=== PATIENT | female | born 1975 | race Caucasian/White ===

== ENCOUNTER 2019-05-22 14:38 | Emergency (ER) | payer OTHER, BC ==
--- NOTE | 2019-05-22 16:01 | RADIOLOGY REPORT (SQ) ---
EXAM DESCRIPTION: FOREARM RIGHT COMPLETED DATE/TIME: 05/22/2019 3:42 pm REASON FOR STUDY: Forearm Injury COMPARISON: None. NUMBER OF VIEWS: Two views. TECHNIQUE: Two radiographic images acquired of the right forearm, including elbow and wrist in at le ast one projection. LIMITATIONS: None. FINDINGS: MINERALIZATION: Normal. BONES: No acute fracture. No worrisome bone lesions. SOFT TISSUES: Mild soft tissue swelling. No foreign body. OTHER: No other significant finding. IMPRESSION: MILD SOFT TISSUE SWELLING. NO FRACTURE OR FOREIGN BODY. TECHNICAL DOCUMENTATION: JOB ID: [id number] [employer]- All Rights Reserved Reading location - IP/workstation name: [email or web address]
[2019-05-22] MEDS ORDERED: DIPH/PERTUSS(ACELL)/TETANUS VAC/PF 0.5 ML SYR (>=10YO) IM ONE (17:54)
--- NOTE | 2019-05-22 17:56 | ER Document Report ---
ED Extremity Problem, Upper - General Chief Complaint: Arm Injury Stated Complaint: RIGHT ARM PAIN Time Seen by Provider: 05/22/19 17:17 Primary Care Provider: KARTHIK RAMOS MD [Primary Care Provider] - Follow up as needed Notes: 44-year-old female presented to ED for injury to the right forearm after a piece of wood she was cutting on a table saw kicked out striking her cutting her right forearm contusion in the area with bruising swelling abrasions and very superficial laceration there is no deformity noted. She is alert oriented respirations regular and unlabored speaking in full sentences walks with a even steady gait. TRAVEL OUTSIDE OF THE [place] IN LAST 30 DAYS: No - HPI Patient complains to provider of: Right, Forearm Onset: Just prior to arrival Recent injury: Yes Where: Home, Outdoors Quality of pain: Sharp, Throbbing Severity of pain: Moderate Pain Level: 4 Context: Blow Associated symptoms: None Exacerbated by: Movement, Exertion Relieved by: Rest, Positioning Similar symptoms previously: No Recently seen / treated by doctor: No - Related Data Allergies/Adverse Reactions: Cephalosporins Allergy (Verified 05/22/19 15:12) hydrocodone Allergy (Verified 05/22/19 15:12) hydromorphone [From Dilaudid] Allergy (Verified 05/22/19 15:12) ketorolac [From Toradol] Allergy (Verified 05/22/19 15:12) latex Allergy (Verified 05/22/19 15:12) meperidine [From Demerol] Allergy (Verified 05/22/19 15:12) Past Medical History - General Information source: Patient - Social History Smoking Status: Never Smoker Cigarette use (# per day): No Frequency of alcohol use: None Drug Abuse: None Lives with: Family Family History: Reviewed & Not Pertinent Patient has suicidal ideation: No Patient has homicidal ideation: No - Past Medical History Cardiac Medical History: Reports: None Pulmonary Medical History: Reports: Hx Asthma EENT Medical History: Reports: None Neurological Medical History: Reports: None Endocrine Medical History: Reports: None Renal/ Medical History: Reports: None Malignancy Medical History: Reports: None GI Medical History: Reports: None Musculoskeletal Medical History: Reports Hx Arthritis, Reports Hx Fibromyalgia, Reports Hx Musculoskeletal Deformity, Reports Hx Musculoskeletal Trauma Skin Medical History: Reports None Psychiatric Medical History: Reports: None Traumatic Medical History: Reports: None Infectious Medical History: Reports: None Past Surgical History: Reports: Hx Gynecologic Surgery, Hx Hysterectomy, Hx Nose Surgery - Sinus surgery, Hx Orthopedic Surgery - Carpal tunnel, Hx Tonsillectomy, Hx Tubal Ligation - Mesh implants and removal, Other - Parathyroid removed esophageal dilatation - Immunizations Immunizations up to date: Yes Hx Diphtheria, Pertussis, Tetanus Vaccination: Yes - 05/22/2019 Review of Systems - Review of Systems Constitutional: No symptoms reported EENT: No symptoms reported Cardiovascular: No symptoms reported Respiratory: No symptoms reported Gastrointestinal: No symptoms reported Genitourinary: No symptoms reported Female Genitourinary: No symptoms reported Musculoskeletal: No symptoms reported Skin: Change in color - Bruising abrasions and is very superficial laceration to the right forearm Hematologic/Lymphatic: No symptoms reported Neurological/Psychological: No symptoms reported Physical Exam - Vital signs Vitals: Temp Pulse Resp BP Pulse Ox 97.4 F 74 16 149/104 H 99 05/22/19 15:37 05/22/19 15:37 05/22/19 15:37 05/22/19 15:37 05/22/19 15:37 Interpretation: Normal - General General appearance: Appears well, Alert - HEENT Head: Normocephalic, Atraumatic Eyes: Normal Pupils: PERRL - Respiratory Respiratory status: No respiratory distress Chest status: Nontender Breath sounds: Normal Chest palpation: Normal - Cardiovascular Rhythm: Regular Heart sounds: Normal auscultation Murmur: No - Abdominal Inspection: Normal Distension: No distension Bowel sounds: Normal Tenderness: Nontender Organomegaly: No organomegaly - Back Back: Normal, Nontender - Extremities General upper extremity: Normal ROM, Normal temperature General lower extremity: Normal inspection, Nontender, Normal color, Normal ROM, Normal temperature, Normal weight bearing. No: Dequan's sign Forearm: Tender, Abrasion, Ecchymosis, Laceration - Very superficial 3 cm does not need sutures - Neurological Neuro grossly intact: Yes Cognition: Normal Orientation: AAOx4 [place] Coma Scale Eye Opening: Spontaneous Adam Coma Scale Verbal: Oriented [place] Coma Scale Motor: Obeys Commands Adam Coma Scale Total: 15 Speech: Normal Motor strength normal: LUE, RUE, LLE, RLE Sensory: Normal - Psychological Associated symptoms: Normal affect, Normal mood - Skin Skin Temperature: Warm Skin Moisture: Dry Skin Color: Normal Location of irregularity: Extremities - Right forearm bruise, abrasions, very superficial laceration 3 cm does not need sutures Irregularity with: Swelling, Tenderness Course - Re-evaluation Re-evalutation: 05/22/19 18:11 Discussed x-ray with patient and written report of x-ray given to patient to follow-up with primary doctor. Wound was cleaned well with soap and water bacitracin Telfa and Jackie applied to the arm. Patient was given instructions on care for the wound herself. She was also been a tetanus immunization. She was medicated with 1 Percocet while in the emergency room and given instructions on Tylenol Motrin elevation and ice. Patient was instructed to follow-up with her primary doctor. Patient verbalized understanding and agreement with treatment plan. - Vital Signs Vital signs: Temp Pulse Resp BP Pulse Ox 97.4 F 74 16 149/104 H 99 05/22/19 15:37 05/22/19 15:37 05/22/19 15:37 05/22/19 15:37 05/22/19 15:37 - Diagnostic Test Radiology reviewed: Image reviewed, Reports reviewed Discharge - Discharge Clinical Impression: Contusion of right forearm, initial encounter, superficial laceration right forearm, Abrasion of right forearm, initial encounter Condition: Stable Disposition: HOME, SELF-CARE Additional Instructions: CONTUSION: Your injury has resulted in a contusion -- a crushing of the deep tissues. No injury to important structures was detected during the physician's exam. Contusions vary in the amount of pain they cause, and in the length of time required for healing. Typically, the area will become bruised, and will remain painful to touch for two or three weeks. However, most patients are back to working and playing within a few days. After the initial period of rest and cold-packs, your symptoms (together with the doctor's recommendations) will determine how rapidly you can get back to full activity. Usually this means "do what feels okay, but don't do things that hurt." If re-examination was recommended, it's important to follow up as instructed. Call the doctor or return any time if pain increases, if swelling becomes severe, if you develop numbness or weakness in an injured extremity, or if any other alarming symptoms occur. ABRASIONS: An abrasion is a scraping injury of the skin. Some scarring may result. The seriousness of an abrasion is not always obvious at first. Hidden tissue damage may be present and infection may occur despite proper care. Complete healing may take from ten days to as long as a month. The healing time depends on the depth of the abrasion, and on the amount of crushing of underlying tissues from the injury. Keep the wound and dressing clean. Do not shower or bathe the area until okayed by the doctor. If the dressing gets wet, remove it and blot the wound dry, then reapply a clean dressing. Dressings should be changed every day. Sunscreen should be used for six months after the skin is healed. If any signs of infection occur (swelling, redness, increasing tenderness, red streaks, profuse purulent drainage from the abrasion, tender lumps in the armpit or groin above the abrasion, or fever), see the doctor immediately. NON-SUTURED LACERATION: Your laceration did not require suturing. Some lacerations cannot be sutured because of increased infection risk, while others simply don't need stitches because they are shallow or very short. Your injury should be protected while it heals. Usually complete healing takes 10 to 14 days. Keep the dressing clean and dry, and change it every day. If you notice increasing pain, redness, swelling, drainage, or tender lumps in the armpit or groin above the injury, infection may be present. You should call the doctor at once. SOAP CLEANSING: Gently wash the wound daily using a mild soap (like Ivory, Phisoderm, Neutrogena). Use warm water, rubbing gently until all debris, ooze, and crusting have been washed from the wound. Allow to dry briefly (about 10 minutes) after cleaning. Repeat this cleansing at least three times a day for the first two days and then once or twice a day. ANTIBIOTIC OINTMENT PROTECTION: Your wounds are such that dressing them is not practical or optional. After cleansing, you should apply a thin coating of antibiotic ointment (Bacitracin, not Neosporin) to the wounds at least three times daily. This lessens infection risk, and may decrease the amount of scarring. Use a q-tip or dull butter knife, not your finger, to apply this ointment. Any debris or ooze which builds up in the ointment should be gently rubbed off with a sterile gauze pad. Harder crusting may need to be gently scrubbed off with a clean wash cloth with soap and warm water, perhaps applying a warm, wet wash cloth to the wound for ten minutes first. Development of redness, severe itching, or blistering may mean allergy to the ointment. See the doctor. TETANUS IMMUNIZATION GIVEN: You have been given an immunization against tetanus. Please record this in your records. In general, a booster is needed only once every 10 years. The tetanus shot protects against tetanus or "lockjaw," which is a complication of certain wound infections (the tetanus shot cannot protect against the actual infection). The immunization site may become warm and red due to local reaction. If this occurs, apply warm compresses and take aspirin or ibuprofen to reduce inflammation and discomfort. Return for evaluation if the reaction becomes severe. USE OF TYLENOL (ACETAMINOPHEN): Acetaminophen may be taken for pain relief or fever control. It's much safer than aspirin, offering a wider range of "safe" dosages. It is safe during . Some brand names are Tylenol, Panadol, Datril, Anacin 3, Tempra, and Liquiprin. Acetaminophen can be repeated every four hours. The following are maximum recommended dosages: WEIGHT Dose Drops Elixir Chewable(80mg) (LBS.) drprs=droppers tsp=teaspoon 6 40 mg 0.4 ml (1/2) 6-11 80 mg 0.8 ml (full) tsp 1 tab 12-16 120 mg 1 1/2 drprs 3/4 tsp 1 1/2 tabs 17-23 160 mg 2 drprs 1 tsp 2 tabs 24-30 240 mg 3 drprs 1 1/2 tsp 3 tabs 30-35 320 mg 2 tsp 4 tabs 36-41 360 mg 2 1/4 tsp 4 1/2 tabs 42-47 400 mg 2 1/2 tsp 5 tabs 48-53 480 mg 3 tsp 6 tabs 54-59 520 mg 3 1/4 tsp 6 1/2 tabs 60-64 560 mg 3 1/2 tsp 7 tabs 65-70 600 mg 3 3/4 tsp 7 1/2 tabs 71-76 640 mg 4 tsp 8 tabs 77-82 720 mg 4 1/2 tsp 9 tabs 83-88 800 mg 5 tsp 10 tabs >89 pounds or adults 650 mg to 900 mg Acetaminophen can be repeated every four hours. Maximum dose not to exceed 4000 mg a day. These maximum recommended dosages are slightly higher than the dosages written on the product container, but these dosages are very safe and below the toxic dosage for acetaminophen. ICE PACKS: Apply ice packs frequently against the painful area. Many different schedules are recommended, such as "20 minutes on, 20 minutes off" or "one hour ice, two hours rest." If you need to work, you may need to go longer between ice treatments. You should plan to have the area ice packed AT LEAST one fourth of the time. The ice should be applied over the wrap, tape, or splint, or over a layer of cloth -- not directly against the skin. Some ice bags have a built-in cloth and can be put directly on the skin. FOLLOW-UP CARE: If you have been referred to a physician for follow-up care, call the physicians office for an appointment as you were instructed or within the next two days. If you experience worsening or a significant change in your symptoms, notify the physician immediately or return to the Emergency Department at any time for re-evaluation. Forms: Elevated Blood Pressure Referrals: KARTHIK RAMOS MD [Primary Care Provider] - Follow up in 3-5 days
[2019-05-22] MEDS ORDERED: OXYCODONE-ACETAMINOPHEN 5-325 MG TABLET PO ONE (18:01)
[2019-05-22 18:15] VITALS: BP 125/87
== END 2019-05-22 18:15 | disposition home or self-care (01) ==
LOC: ER 14:38
DX: S50.11XA Contusion of right forearm, initial encounter (principal); S50.811A Abrasion of right forearm, initial encounter; W29.8XXA Contact with other powered hand tools and household machinery, initial encounter; Y92.009 Unspecified place in unspecified non-institutional (private) residence as the place of occurrence of the external cause; Z90.710 Acquired absence of both cervix and uterus; Z98.51 Tubal ligation status; Z88.6 Allergy status to analgesic agent; Z91.040 Latex allergy status; Z23 Encounter for immunization
CPT/HCPCS: 90471; 90715; 99283

== ENCOUNTER → 2019-11-05 | Outpatient (CLI) | payer OTHER ==
--- NOTE | 2019-11-05 12:58 | RADIOLOGY REPORT (SQ) ---
EXAM DESCRIPTION: MRI HEAD COMBO COMPLETED DATE/TIME: 11/05/2019 10:19 am REASON FOR STUDY: PARESTHESIA OF SKIN/ESSENTIAL TREMOR R20.2 PARESTHESIA OF SKIN G25.0 ESSENTIAL T REMOR COMPARISON: None. TECHNIQUE: Multiplanar imaging includes noncontrasted T1, T2, FLAIR, diffusion with ADC map and post gadolinium contrast T1 sequences. Images stored on PACS. CONTRAST TYPE AND DOSE: 15 mL Dotarem. RENAL FUNCTION: Not indicated. ACR Type II contrast agent associated with few, if any, unconfounded cases of NSF LIMITATIONS: None. FINDINGS: ANATOMY: No anomalies. Normal vascular flow voids. Pituitary fossa normal. CSF SPACES: Normal in size and contour. No hemorrhage. CEREBRUM: Sulci and gyri normal in size and contour. Normal white matter signal on FLAIR imaging. No evidence of hemorrhage, mass, or extraaxial fluid collection. No abnormal enhancement post contrast. POSTERIOR FOSSA: No signal alteration. No hemorrhage. No edema, masses, or mass effect. Internal raul tory canals, cerebellopontine angles, mastoids normal. No enhancing lesions. No abnormal enhancement post contrast. DIFFUSION IMAGING: Negative for acute or subacute infarction. ORBITS: No masses. Globes normal. PARANASAL SINUSES: No fluid levels. Mucosa normal. OTHER: No other significant finding. IMPRESSION: NORMAL MRI OF THE BRAIN WITHOUT AND WITH INTRAVENOUS GADOLINIUM CONTRAST. EVIDENCE OF ACUTE STROKE: NO. TECHNICAL DOCUMENTATION: JOB ID: [id number] [employer]- All Rights Reserved Reading location - IP/workstation name: [email or web address]
--- NOTE | 2019-11-05 14:51 | WOMENS IMAGING REPORT ---
EXAM DESCRIPTION: 3D SCREENING MAMMO BILAT COMPLETED DATE/TIME: 11/05/2019 11:07 am REASON FOR STUDY: Z12.31 SCREENING MAMMO R20.2 PARESTHESIA OF SKIN G25.0 ESSENTIAL TREMOR COMPARISON: Baseline study EXAM PARAMETERS: Views: Standard craniocaudal and mediolateral oblique views of each breast recorded using digital acquisition and breast tomosynthesis. Read with the assistance of CAD. .[facility] - [employer] Sales Representative [facility] Version 9.2 LIMITATIONS: None. FINDINGS: No suspicious masses, suspicious calcifications or architectural distortion. No areas of c oncern. IMPRESSION: NEGATIVE MAMMOGRAM. BIRADS 1. BREAST DENSITY: c. The breasts are heterogeneously dense, which may obscure small masses. BIRAD: ASSESSMENT: 1 NEGATIVE RECOMMENDATION: ROUTINE SCREENING Please continue yearly bilateral screening mammography/tomosynthesis in October 2020 COMMENT: The patient has been notified of the results by letter per SA requirements. Additional no tification policies are in place for contacting patient with suspicious or incomplete findings. Quality ID #[id number]: The [employer] recommends an annual screening mammogram for women aged 40 years or over. This facility utilizes a reminder system to ensure that all patients receive reminder letters, and/or direct phone calls for appointments. This includes reminders for routine scr eening mammograms, diagnostic mammograms, or other Breast Imaging Interventions when appropriate. Th is patient will be placed in the appropriate reminder system. TECHNICAL DOCUMENTATION: FINDING NUMBER: (1) ASSESSMENT: (1) JOB ID: [id number] [employer]- All Rights Reserved Reading location - IP/workstation name: [email or web address]
== END ==
LOC: RAD 09:32
PROVIDERS: ATTEND Family Medicine
DX: Z12.31 Encounter for screening mammogram for malignant neoplasm of breast (principal); G25.0 Essential tremor; R20.2 Paresthesia of skin
CPT/HCPCS: 70553; 77063; 77067; A9576

== ENCOUNTER 2019-11-25 12:19 | Emergency (ER) | payer OTHER ==
[2019-11-25 12:25] VITALS: BP 120/80
[2019-11-25] MEDS ORDERED: ASPIRIN 81 MG TABLET, CHEWABLE PO ONE (13:31)
--- NOTE | 2019-11-25 13:32 | ER Document Report ---
ED Medical Screen (RME) - General Chief Complaint: Chest Pain Stated Complaint: SHORTNESS OF BREATH Time Seen by Provider: 11/25/19 13:28 Primary Care Provider: SARITHA LAKE DO [Primary Care Provider] - Follow up as needed Mode of Arrival: Ambulatory Information source: Patient Notes: 44-year-old female with history of asthma presents to the emergency department w ith complaints of chest pain to the center of her chest shortness of breath and back pain between her shoulder pains for the past 2 days. Denies history of cardiac disease. Denies fever vomiting diarrhea. I have greeted and performed a rapid initial assessment of this patient. A comprehensive ED assessment and evaluation of the patient, analysis of test results and completion of the medical decision making process will be conducted by additional ED providers. TRAVEL OUTSIDE OF THE [place] IN LAST 30 DAYS: No - Related Data Allergies/Adverse Reactions: Cephalosporins Allergy (Verified 11/25/19 13:24) hydrocodone Allergy (Verified 11/25/19 13:24) hydromorphone [From Dilaudid] Allergy (Verified 11/25/19 13:24) ketorolac [From Toradol] Allergy (Verified 11/25/19 13:24) latex Allergy (Verified 11/25/19 13:24) meperidine [From Demerol] Allergy (Verified 11/25/19 13:24) Past Medical History Pulmonary Medical History: Reports: Hx Asthma Renal/ Medical History: Denies: Hx Peritoneal Dialysis Musculoskeltal Medical History: Reports Hx Arthritis, Reports Hx Fibromyalgia, Reports Hx Musculoskeletal Deformity, Reports Hx Musculoskeletal Trauma Past Surgical History: Reports: Hx Genitourinary Surgery - mesh, Hx Gynecologic Surgery, Hx Hysterectomy, Hx Nose Surgery - Sinus surgery, Hx Orthopedic Surgery - Carpal tunnel, Hx Thyroid Surgery - parathyroidectomy, Hx Tonsillectomy, Hx Tubal Ligation, Other - Parathyroid removed esophageal dilatation - Immunizations Immunizations up to date: Yes Hx Diphtheria, Pertussis, Tetanus Vaccination: Yes - 05/22/2019 Physical Exam - Vital signs Vitals: Temp Pulse Resp BP Pulse Ox 98.1 F 97 16 120/80 100 11/25/19 12:24 11/25/19 12:24 11/25/19 12:24 11/25/19 12:24 11/25/19 12:24 Course - Vital Signs Vital signs: Temp Pulse Resp BP Pulse Ox 98.1 F 97 16 120/80 100 11/25/19 12:24 11/25/19 12:24 11/25/19 12:24 11/25/19 12:24 11/25/19 12:24 Doctor's Discharge - Discharge Referrals: SARITHA LAKE DO [Primary Care Provider] - Follow up as needed
[2019-11-25 14:23] LABS: ABSOLUTE EOSINOPHILS # (AUTO) 0.5 10^3/uL (0.0-0.6); ABSOLUTE LYMPHOCYTES (AUTO) 1.5 10^3/uL (0.5-4.7); ABSOLUTE MONOCYTES (AUTO) 1.1 10^3/uL (0.1-1.4); ABSOLUTE NEUT (AUTO) 6.2 10^3/uL (1.7-8.2); BASOPHILS % (AUTO) 0.3 % (0-2); EOSINOPHILS % (AUTO) 5.4 % (0-6); HEMATOCRIT 40.8 % (36.0-47.0); HEMOGLOBIN 14.1 g/dL (12.0-15.5); LYMPHOCYTES % (AUTO) 16.6 % (13-45); MEAN CORPUSCULAR HEMOGLOBIN 30.6 pg (27.0-33.4); MEAN CORPUSCULAR HGB CONC 34.7 g/dL (32.0-36.0); MEAN CORPUSCULAR VOLUME 88 fl (80-97); MONOCYTES % (AUTO) 11.3 % (3-13); PLATELET COUNT 273 10^3/uL (150-450); RED BLOOD COUNT 4.62 10^6/uL (3.72-5.28); RED CELL DISTRIBUTION WIDTH 13.3 % (11.5-14.0); SEGMENTED NEUTROPHILS % (AUTO) 66.4 % (42-78); TOTAL CELLS COUNTED % (AUTO) 100 %; WHITE BLOOD COUNT 9.3 10^3/uL (4.0-10.5)
[2019-11-25 14:43] LABS: ALBUMIN 4.1 g/dL (3.5-5.0); ALKALINE PHOSPHATASE 68 U/L (38-126); ANION GAP 12 (5-19); ASPARTATE AMINO TRANSFERASE 22 U/L (14-36); BILIRUBIN,DIRECT 0.2 mg/dL (0.0-0.4); BILIRUBIN,TOTAL 0.3 mg/dL (0.2-1.3); BLOOD UREA NITROGEN 7 mg/dL (7-20); CALCIUM 9.9 mg/dL (8.4-10.2); CARBON DIOXIDE 25 mmol/L (22-30); CHLORIDE 102 mmol/L (98-107); GLUCOSE 77 mg/dL (75-110); POTASSIUM 4.1 mmol/L (3.6-5.0); TOTAL PROTEIN 7.2 g/dL (6.3-8.2)
--- NOTE | 2019-11-25 14:44 | RADIOLOGY REPORT (SQ) ---
EXAM DESCRIPTION: CHEST 2 VIEWS COMPLETED DATE/TIME: 11/25/2019 2:33 pm REASON FOR STUDY: cp sob COMPARISON: None. EXAM PARAMETERS: NUMBER OF VIEWS: two views TECHNIQUE: Digital Frontal and Lateral radiographic views of the chest acquired. RADIATION DOSE: NA LIMITATIONS: none FINDINGS: LUNGS AND PLEURA: No opacities, masses or pneumothorax. No pleural effusion. MEDIASTINUM AND HILAR STRUCTURES: No masses or contour abnormalities. HEART AND VASCULAR STRUCTURES: Heart normal size. No evidence for failure. BONES: No acute findings. HARDWARE: None in the chest. OTHER: No other significant finding. IMPRESSION: NO ACUTE RADIOGRAPHIC FINDING IN THE CHEST. TECHNICAL DOCUMENTATION: JOB ID: [id number] [employer]- All Rights Reserved Reading location - IP/workstation name: [email or web address]
[2019-11-25] MEDS ORDERED: ASPIRIN 81 MG TABLET, CHEWABLE ONE (17:22)
--- NOTE | 2019-11-25 18:42 | EKG REPORT ---
SEVERITY:- BORDERLINE ECG - SINUS RHYTHM BORDERLINE T ABNORMALITIES, ANTERIOR LEADS : Confirmed by: Randal Graham MD 25-Nov-2019 18:42:04
== END 2019-11-25 19:58 | disposition left against medical advice (07) ==
LOC: ER 12:19
DX: R07.9 Chest pain, unspecified (principal); J45.909 Unspecified asthma, uncomplicated; R06.02 Shortness of breath; M54.9 Dorsalgia, unspecified; Z88.1 Allergy status to other antibiotic agents; Z88.6 Allergy status to analgesic agent; Z88.5 Allergy status to narcotic agent; Z91.040 Latex allergy status; Z53.20 Procedure and treatment not carried out because of patient's decision for unspecified reasons
CPT/HCPCS: 36415; 71046; 80053; 84484; 85025; 93005; 93010; 99281

== ENCOUNTER 2019-11-26 15:22 | Emergency (ER) | payer OTHER ==
[2019-11-26 15:39] VITALS: BP 132/94
[2019-11-26] MEDS ORDERED: IPRATROPIUM/ALBUTEROL 0.5-2.5 MG/3 ML AMPUL NEB ONE ×2 (15:49→16:55)
[2019-11-26] MEDS ORDERED: METHYLPREDNISOLONE INJ 125 MG/2 ML SDV IM ONE (15:49)
--- NOTE | 2019-11-26 15:50 | ER Document Report ---
ED Medical Screen (RME) - General Chief Complaint: Shortness Of Breath Stated Complaint: SHORTNESS OF BREATH Time Seen by Provider: 11/26/19 15:49 Primary Care Provider: SARITHA LAKE DO [Primary Care Provider] - Follow up as needed TRAVEL OUTSIDE OF THE [place] IN LAST 30 DAYS: No - HPI Notes: 11/26/19 15:49 Patient is a 44-year-old female with a history of asthma who presents complaining of wheezing and dry cough over the past couple days. She was seen yesterday through triage and had labs performed which were unremarkable as she was having some chest pains at that time as well. Patient believe that this is just her asthma. She is otherwise able to eat and drink without difficulty. She is urinating normally. Denies fever, current chest pain, abdominal pain. Patient did have an unremarkable cardiac work-up yesterday. I have treated and performed a rapid initial assessment of this patient. A comprehensive ED assessment and evaluation of the patient, analysis of test results and completion of medical decision making process will be conducted by additional ED providers. PHYSICAL EXAMINATION: GENERAL: Well-appearing, well-nourished and in no acute distress. A&Ox4. Answers questions appropriately. Lung: + dry cough heard and expiratory wheezes noted b/l. No retractions. Heart: RRR - Related Data Allergies/Adverse Reactions: Cephalosporins Allergy (Verified 11/26/19 15:48) hydrocodone Allergy (Verified 11/26/19 15:48) hydromorphone [From Dilaudid] Allergy (Verified 11/26/19 15:48) ketorolac [From Toradol] Allergy (Verified 11/26/19 15:48) latex Allergy (Verified 11/26/19 15:48) meperidine [From Demerol] Allergy (Verified 11/26/19 15:48) Past Medical History Pulmonary Medical History: Reports: Hx Asthma Renal/ Medical History: Denies: Hx Peritoneal Dialysis Musculoskeltal Medical History: Reports Hx Arthritis, Reports Hx Fibromyalgia, Reports Hx Musculoskeletal Deformity, Reports Hx Musculoskeletal Trauma Past Surgical History: Reports: Hx Genitourinary Surgery - mesh, Hx Gynecologic Surgery, Hx Hysterectomy, Hx Nose Surgery - Sinus surgery, Hx Orthopedic Surgery - Carpal tunnel, Hx Thyroid Surgery - parathyroidectomy, Hx Tonsillectomy, Hx Tubal Ligation, Other - Parathyroid removed esophageal dilatation - Immunizations Immunizations up to date: Yes Hx Diphtheria, Pertussis, Tetanus Vaccination: Yes - 05/22/2019 Physical Exam - Vital signs Vitals: Temp Pulse Resp BP Pulse Ox 98.6 F 77 18 132/94 H 99 11/26/19 15:39 11/26/19 15:39 11/26/19 15:39 11/26/19 15:39 11/26/19 15:39 Course - Vital Signs Vital signs: Temp Pulse Resp BP Pulse Ox 98.6 F 77 18 132/94 H 99 11/26/19 15:39 11/26/19 15:39 11/26/19 15:39 11/26/19 15:39 11/26/19 15:39 Doctor's Discharge - Discharge Referrals: SARITHA LAKE DO [Primary Care Provider] - Follow up as needed
--- NOTE | 2019-11-26 16:15 | ER Document Report ---
ED Respiratory Problem - General Chief Complaint: Shortness Of Breath Stated Complaint: SHORTNESS OF BREATH Time Seen by Provider: 11/26/19 15:49 Primary Care Provider: SARITHA LAKE DO [Primary Care Provider] - 11/29/19 Notes: Patient is a 44-year-old female presents to the emergency department with a chief complaint of difficulty breathing. Patient was seen here in the emergency department yesterday and had labs and a chest x-ray done. Patient states that she was using her albuterol nebulizer at home, but had little relief of her symptoms. Patient did not receive steroids yesterday. Patient has a history of asthma. She is also on Symbicort. TRAVEL OUTSIDE OF THE [place] IN LAST 30 DAYS: No - Related Data Allergies/Adverse Reactions: Cephalosporins Allergy (Verified 11/26/19 15:48) hydrocodone Allergy (Verified 11/26/19 15:48) hydromorphone [From Dilaudid] Allergy (Verified 11/26/19 15:48) ketorolac [From Toradol] Allergy (Verified 11/26/19 15:48) latex Allergy (Verified 11/26/19 15:48) meperidine [From Demerol] Allergy (Verified 11/26/19 15:48) Past Medical History - Social History Smoking Status: Never Smoker Chew tobacco use (# tins/day): No Frequency of alcohol use: None Drug Abuse: Marijuana Family History: Reviewed & Not Pertinent Patient has suicidal ideation: No Patient has homicidal ideation: No Pulmonary Medical History: Reports: Hx Asthma Renal/ Medical History: Denies: Hx Peritoneal Dialysis Musculoskeletal Medical History: Reports Hx Arthritis, Reports Hx Fibromyalgia, Reports Hx Musculoskeletal Deformity, Reports Hx Musculoskeletal Trauma Past Surgical History: Reports: Hx Genitourinary Surgery - mesh, Hx Gynecologic Surgery, Hx Hysterectomy, Hx Nose Surgery - Sinus surgery, Hx Orthopedic Surgery - Carpal tunnel, Hx Thyroid Surgery - parathyroidectomy, Hx Tonsillectomy, Hx Tubal Ligation, Other - Parathyroid removed esophageal dilatation - Immunizations Immunizations up to date: Yes Hx Diphtheria, Pertussis, Tetanus Vaccination: Yes - 05/22/2019 Review of Systems - Review of Systems Notes: REVIEW OF SYSTEMS: CONSTITUTIONAL : Denies recent illness. Denies recent unintentional weight loss. Denies fever, chills, or sweats. EENT: Denies eye, ear, throat, or mouth pain, discharge, or symptoms. Denies nasal or sinus congestion. CARDIOVASCULAR: Denies chest pain. RESPIRATORY: See HPI. GASTROINTESTINAL: Denies nausea, vomiting, and diarrhea. Denies abdominal pain. Denies constipation. GENITOURINARY: Denies difficulty urinating, burning, blood in urine, urgency or frequency. MUSCULOSKELETAL: Denies neck and back pain. Denies joint pain or swelling. SKIN: Denies rash, itchiness, or lesions HEMATOLOGIC : Denies easy bruising or bleeding. LYMPHATIC: Denies swollen, painful, enlarged glands. NEUROLOGICAL: Denies no numbness or tingling denies weakness. Denies headache. Denies altered mental status. Denies alteration in speech. PSYCHIATRIC: Denies stress, anxiety, alteration in sleep patterns, or depression. All other systems reviewed and negative. Physical Exam - Vital signs Vitals: Temp Pulse Resp BP Pulse Ox 98.6 F 77 18 132/94 H 99 11/26/19 15:39 11/26/19 15:39 11/26/19 15:39 11/26/19 15:39 11/26/19 15:39 - Notes Notes: PHYSICAL EXAMINATION: GENERAL: Appears well, healthy, well-nourished, no acute distress. HEAD: Normocephalic, atraumatic. EYES: PERRL, conjunctiva normal, all extraocular movements intact, sclera nonicteric ENT: Moist mucous membranes. NECK: Supple, no noticeable swelling, redness, rash. Normal range of motion. LUNGS: Expiratory wheezes noted throughout all lung zapata. CARDIOVASCULAR: S1-S2, regular rate, regular rhythm. Radial pulses 2+, normal. ABDOMEN: Normoactive bowel sounds. Soft, nontender, no guarding, no rebound tenderness, and no masses palpated. EXTREMITIES: Normal strength and range of motion, no pitting or edema. No cyanosis. NEUROLOGICAL: Moves all extremities upon command. Strength 5/5 in all e xtremities. PSYCH: Normal mood, normal affect. SKIN: Warm, dry. No rash, lesions, ulcerations noted. Normal skin turgor. Course - Re-evaluation Re-evalutation: 11/26/19 18:01 I have reassessed the patient and her lung sounds are much better after receiving her third DuoNeb treatment and Singulair and Tessalon Perles. Patient will be sent home with prednisone. She will follow-up with her primary care provider. She is in agreement with this plan. Follow-up precautions were given. Verbal discharge instructions were given to the patient. They verbalized understanding. They are stable for discharge. - Vital Signs Vital signs: Temp Pulse Resp BP Pulse Ox 98.6 F 77 18 132/94 H 99 11/26/19 15:39 11/26/19 15:39 11/26/19 15:39 11/26/19 15:39 11/26/19 15:39 Discharge - Discharge Clinical Impression: Asthma exacerbation Qualifiers: Asthma severity: moderate Asthma persistence: unspecified Qualified Code(s): J 45.901 - Unspecified asthma with (acute) exacerbation Condition: Stable Disposition: HOME, SELF-CARE Additional Instructions: You were seen for an asthma exacerbation. Your symptoms improved with treatment here in the emergency department. However, it is very important that you return to the emergency department immediately if you began to have worsening difficulty breathing that does not respond to your normal home nebulizers. You are also being sent home on a five-day course of steroids that you should start taking tomorrow. Please also follow closely with your primary care physician. you should also return to emergency department if you develop fever greater than 101, persistent cough, persistent vomiting, pass out, or any other symptoms that are concerning to you. You were restarted on your Singulair. You are also being sent home with Triston May for your cough. Prescriptions: Montelukast Sodium [Singulair 10 mg Tablet] 10 mg PO QHS #30 tablet Benzonatate [Tessalon Perle 100 mg Capsule] 100 mg PO Q8HP PRN #40 cap PRN Reason: Prednisone [Deltasone 20 mg Tablet] 3 tab PO DAILY 5 Days #15 tablet Albuterol Sulfate [Ventolin 0.083% Neb 2.5 mg/3 mL Ampul] 1 vial NEB ASDIR PRN #30 vial PRN Reason: Referrals: SARITHA LAKE DO [Primary Care Provider] - 11/29/19
[2019-11-26] MEDS ORDERED: BENZONATATE 100 MG CAPSULE PO ONE (16:55)
[2019-11-26] MEDS ORDERED: MONTELUKAST SODIUM 10 MG TABLET PO ONE (16:55)
== END 2019-11-26 18:55 | disposition home or self-care (01) ==
LOC: ER 15:22
DX: J45.901 Unspecified asthma with (acute) exacerbation (principal); R06.02 Shortness of breath; Z79.899 Other long term (current) drug therapy
CPT/HCPCS: 94640 ×2; 99284; 96372; J2930; J7620

== ENCOUNTER → 2020-07-29 | Outpatient (CLI) | payer BC ==
--- NOTE | 2020-07-29 12:42 | RADIOLOGY REPORT (SQ) ---
EXAM DESCRIPTION: U/S ABDOMEN LIMITED W/O DOP IMAGES COMPLETED DATE/TIME: 07/29/2020 9:42 am REASON FOR STUDY: K76.89 OTHER SPECIFIED DISEASES OF LIVER K76.89 OTHER SPECIFIED DISEASES OF LIVER COMPARISON: None. TECHNIQUE: Dynamic and static grayscale images acquired of the abdomen and recorded on PACS. Additio nal selected color Doppler and spectral images recorded. LIMITATIONS: None. FINDINGS: PANCREAS: The visualized portions of the pancreatic head and body appear normal. The panc reatic tail is obscured by overlying bowel. LIVER: Normal contour and echotexture of the liver. LIVER VASCULATURE: Hepatopetal directional flow in the portal veins. GALLBLADDER: The gallbladder wall measures 3 mm in thickness. There is no cholelithiasis, sludge or pericholecystic fluid. ULTRASOUND-DETECTED SANTACRUZ'S SIGN: Negative. INTRAHEPATIC DUCTS AND COMMON DUCT: The common bile duct measures 2 mm in diameter. There is no dila tation of the intrahepatic bile ducts. INFERIOR VENA CAVA: Not assessed. AORTA: No aneurysm. RIGHT KIDNEY: The right kidney measures 12.5 cm in length. The echogenicity of the kidney is increa sed. There is a cyst in the upper pole of the kidney that measures 5.7 x 5.2 x 5.9 cm. PERITONEAL AND RIGHT PLEURAL SPACE: No ascites or effusions. OTHER: No other findings. IMPRESSION: 1. The pancreatic tail is obscured by overlying bowel. The visualized portions of the p ancreatic head and body appear normal. 2. Normal appearance of the liver and gallbladder. 3. Increased echogenicity of the right renal parenchyma. Correlate for chronic medical renal diseas e. 4. Cyst in the upper pole of the right kidney that measures 5.7 x 5.2 x 5.9 cm. TECHNICAL DOCUMENTATION: JOB ID: [id number] 2010 [employer]- All Rights Reserved Reading location - IP/workstation name: [email or web address]
--- NOTE | 2020-07-29 12:53 | RADIOLOGY REPORT (SQ) ---
EXAM DESCRIPTION: U/S RETROPERITON (RENAL/AORTA) IMAGES COMPLETED DATE/TIME: 07/29/2020 9:43 am REASON FOR STUDY: N28.1 CYST OF KIDNEY K76.89 OTHER SPECIFIED DISEASES OF LIVER COMPARISON: None. TECHNIQUE: Dynamic and static grayscale images acquired of the kidneys and bladder and recorded on P ACS. Additional selected color Doppler and spectral images recorded. LIMITATIONS: None. FINDINGS: RIGHT KIDNEY: Normal size 12.8 cm. Normal echogenicity. 5.7 cm cyst. Questionable scarri ng in the mid renal cortex. No solid or suspicious masses. No hydronephrosis. No calcifications. LEFT KIDNEY: Normal size 9.5 cm. Normal echogenicity. No solid or suspicious masses. No hydronephros is. No calcifications. BLADDER: The bladder is not well filled but is morphologically normal. Ureteral jets are not seen. OTHER FINDINGS: No other significant finding. IMPRESSION: Right renal cyst. Questionable scarring in the mid renal cortex. TECHNICAL DOCUMENTATION: JOB ID: [id number] 2010 [employer]- All Rights Reserved Reading location - IP/workstation name: [email or web address]
== END ==
LOC: RAD 08:57
PROVIDERS: ATTEND Family Medicine
DX: K76.89 Other specified diseases of liver (principal); N28.1 Cyst of kidney, acquired
CPT/HCPCS: 76705; 76770

== ENCOUNTER → 2020-07-30 | Outpatient (CLI) | payer BC ==
--- NOTE | 2020-07-30 15:36 | RADIOLOGY REPORT (SQ) ---
EXAM DESCRIPTION: INJECT VCU/CYSTOGRAM; VOIDING CYSTOURETHROGRAM IMAGES COMPLETED DATE/TIME: 07/30/2020 3:16 pm; 07/30/2020 4:55 pm REASON FOR STUDY: N28.1 CYST OF KIDNEY, ACQUIRED N28.1 CYST OF KIDNEY, ACQUIRED COMPARISON: None. FLUOROSCOPY TIME: FLUORO TIME: 2.3 minutes of fluoroscopy was used. 18 images saved to PACS. LIMITATIONS: None. PROCEDURE: Procedure explained to patient, who gave consent. Urinary bladder catheterized with dire ct visual inspection using sterile technique. Bladder filled with approximately 250 ml of non-ionic contrast via gravity drip. FINDINGS: BLADDER: Normal in size and contour. No filling defects. URETHRA: Normal. No obstruction. LEFT URETER: No vesicoureteral reflux. RIGHT URETER: No vesicoureteral reflux. OTHER FINDINGS: No other abnormality noted in soft tissues or bone. POST VOID: Minimal contrast residual. OTHER: No other significant finding. IMPRESSION: Normal Voiding Cystourethrogram. COMMENT: Quality ID 145: Final reports for procedures using fluoroscopy that document radiation exp osure indices, or exposure time and number of fluorographic images (if radiation exposure indices are not available) TECHNICAL DOCUMENTATION: JOB ID: [id number] 2010 [employer]- All Rights Reserved Reading location - IP/workstation name: [email or web address] [id number]
--- NOTE | 2020-07-30 15:36 | RADIOLOGY REPORT (SQ) ---
EXAM DESCRIPTION: INJECT VCU/CYSTOGRAM; VOIDING CYSTOURETHROGRAM IMAGES COMPLETED DATE/TIME: 07/30/2020 3:16 pm; 07/30/2020 4:55 pm REASON FOR STUDY: N28.1 CYST OF KIDNEY, ACQUIRED N28.1 CYST OF KIDNEY, ACQUIRED COMPARISON: None. FLUOROSCOPY TIME: FLUORO TIME: 2.3 minutes of fluoroscopy was used. 18 images saved to PACS. LIMITATIONS: None. PROCEDURE: Procedure explained to patient, who gave consent. Urinary bladder catheterized with dire ct visual inspection using sterile technique. Bladder filled with approximately 250 ml of non-ionic contrast via gravity drip. FINDINGS: BLADDER: Normal in size and contour. No filling defects. URETHRA: Normal. No obstruction. LEFT URETER: No vesicoureteral reflux. RIGHT URETER: No vesicoureteral reflux. OTHER FINDINGS: No other abnormality noted in soft tissues or bone. POST VOID: Minimal contrast residual. OTHER: No other significant finding. IMPRESSION: Normal Voiding Cystourethrogram. COMMENT: Quality ID 145: Final reports for procedures using fluoroscopy that document radiation exp osure indices, or exposure time and number of fluorographic images (if radiation exposure indices are not available) TECHNICAL DOCUMENTATION: JOB ID: [id number] 2010 [employer]- All Rights Reserved Reading location - IP/workstation name: [email or web address] [id number]
== END ==
LOC: RAD 13:51
PROVIDERS: ATTEND Family Medicine
DX: N28.1 Cyst of kidney, acquired (principal)
CPT/HCPCS: 74455; 51600; C1758